=== PATIENT | male | born 1975 | race African-American/Black ===

== ENCOUNTER 2017-04-23 19:35 | Emergency (ER) | payer BC ==
[~2017-04-23] VITALS: Ht 172.7 cm; Wt 97.5 kg
--- NOTE | ~2017-04-23 | CT2 ---
[facility] A Service of [facility] & [facility] RADIOLOGY TEXT RESULTS PATIENT: RODRIGUEZ DIETZ LOCATION: SED : 71 UNIT #: [id number] AGE: [address]: Judd Mina MD SEX: M ORDER DR: [id number] [place] [id number] MR#: [id number] Acc #: [id number] NAME: RODRIGUEZ DIETZ : 1975 SEX: M STUDY DATE/TIME: 04/23/2017 23:16 UNIT: SED ROOM: STUDY DESCRIPTION: CT Abd and Pelv W Cont Attending Physician: Judd Mina M.D. Ordering Physician: Judd Mina M.D. Primary Care Physician: Primary Care Physician No MEDICAL IMAGING REPORT This report is preliminary unless electronic signature is present. EXAM CT abdomen and pelvis with oral and IV contrast HISTORY Severe abdomen pain for [address] exam was performed with one or more of the following radiation dose reduction techniques: automatic exposure control, adjustment of mA and/or kV according to patient size, and iterative reconstruction. FINDINGS CT abdomen and pelvis was performed with oral and IV contrast. CT ABDOMEN: The liver, gallbladder, spleen, pancreas, kidneys, and adrenal glands are normal. No bowel dilatation. Trace ascites in the pericolic gutters. Normal caliber abdominal aorta. CT PELVIS: There is severe wall thickening of the sigmoid colon along its mid and proximal aspect, over a length of 16 cm, with extensive adjacent pericolonic stranding. Given the length of involvement, this is most likely infectious or inflammatory colitis. Diverticulitis is also a consideration. There is a rounded, slightly lobulated mass in the proximal ascending colon measuring 4.5 cm x 4.3 cm. Normal appendix. Small amount of free fluid in the pelvis. Urinary bladder is normal. IMPRESSION 1. Severe diffuse wall thickening of the mid and proximal sigmoid colon over a length of 16 cm with extensive adjacent pericolonic stranding and resultant luminal narrowing. Given the length of involvement, infectious or inflammatory colitis is considered most likely. Diverticulitis is an additional but less likely consideration. 2. There is a rounded lobulated mass in the proximal ascending colon [facility]S. [facility] A Service of [facility] & [facility] RADIOLOGY TEXT RESULTS PATIENT: RODRIGUEZ DIETZ LOCATION: SED : 71 UNIT #: [id number] AGE: [address]: Judd Mina MD SEX: M ORDER DR: measuring 4.5 cm. Colonic neoplasm is suspected. Followup colonoscopy after appropriate assessment and treatment for the sigmoid abnormality is recommended to both ensure resolution of the process in the sigmoid colon and to further characterize the suspicious rounded mass in the proximal ascending colon. 3. Normal appendix. 4. No acute findings on the remainder of the study. Dictated by... Anurag Verma M.D. THIS IS AN ELECTRONICALLY VERIFIED REPORT Anurag Verma M.D. at 04/24/2017 4:21 AM JING/samantha TD: 04/24/2017 02:26 JOB #: [id number] MEDICAL IMAGING REPORT Page 1 of 1
[2017-04-23 21:49] LABS: BASOPHIL% 0.2 % (0-2.5); EOSINOPHIL% 0.1 % (0.0-7.0); HEMATOCRIT 37.4 % (38.0-50.0); LYMPHOCYTE# 0.6 X10e3 (1.0-3.5); LYMPHOCYTE% 3.8 % (17.0-45.0); MEAN CELL VOLUME 81.9 FL (83-96); MEAN CORPUSCULAR HEMOGLOBIN 26.3 PG (28-34); MEAN CORPUSCULAR HGB CONC 32.1 g/dL (30-36); MEAN PLATELET VOLUME 8.2 FL (6.5-11.5); MONOCYTE# 1.2 X10e3 (0-1.0); MONOCYTE% 7.3 % (3.0-12.0); NEUTROPHIL# 14.1 X10e3 (1.5-7.1); NEUTROPHIL% 88.6 % (40-75); PLATELET COUNT 389 X10e3 (140-420); RED BLOOD COUNT 4.57 X10e (3.90-5.60); RED CELL DISTRIBUTION WIDTH 14.5 % (11.0-15.5)
[2017-04-23 21:50] LABS: URINE SOURCE CLEAN CATCH
[2017-04-23 21:51] LABS: DIFF IND NO
[2017-04-23 21:52] LABS: URINE APPEARANCE CLEAR; URINE BILIRUBIN NEG (NEG); URINE BLOOD NEG (NEG); URINE COLOR YELLOW; URINE GLUCOSE 50 MG/DL (NORM); URINE KETONE NEG (NEG); URINE LEUKOCYTE ESTERASE NEG (NEG); URINE NITRATE NEG (NEG); URINE PROTEIN NEG (NEG); URINE SPECIFIC GRAVITY <=1.005 (1.003-1.035); URINE UROBILINOGEN 0.2 MG/DL (NORM)
[2017-04-23 21:55] LABS: MICRO INDICATED? NO
[2017-04-23 22:05] LABS: ALKALINE PHOSPHATASE 87 U/L (32-92); ALT (SGPT) 13 U/L (10-40); AMYLASE 15 U/L (0-46); AST (SGOT) 17 U/L (10-42); BILIRUBIN,TOTAL 0.7 mg/dL (0.2-2.0); BLOOD UREA NITROGEN 6 mg/dL (9-23); BUN/CREATININE RATIO 6.66; CALCIUM SERUM 8.8 mg/dL (8.4-10.2); CARBON DIOXIDE 26 mmol/L (22-31); CHLORIDE 102 mmol/L (100-111); CREATININE SERUM 0.9 mg/dL (0.6-1.4); GLOM FILT RATE Estimated 104.2 mL/min (>60); GLUCOSE FASTING 97 mg/dL (70-110); LIPASE 24 U/L (22-51); POTASSIUM 3.9 mmol/L (3.5-5.1); PROTEIN TOTAL SERUM 8.2 g/dL (6.0-8.3); SODIUM 133 mmol/L (135-145)
[2017-04-23 22:09] LABS: BILIRUBIN, DIRECT <0.1 mg/dL (0.0-0.2); BILIRUBIN,INDIRECT 0.6 mg/dL (0.0-0.9)
== END 2017-04-24 00:55 | disposition home or self-care (01) ==
LOC: SED 19:35
PROVIDERS: Emergency Medicine
DX: A09 Infectious gastroenteritis and colitis, unspecified (principal); C18.2 Malignant neoplasm of ascending colon; F17.200 Nicotine dependence, unspecified, uncomplicated
CPT/HCPCS: 36415; 74177; 80048; 80076; 81003; 82150; 83690; 85025; 96361; 96374; 96375; 99284; J1170; J2405; Q9967